=== PATIENT | male | born 1950 | race Caucasian/White ===

== ENCOUNTER → 2016-05-08 | Outpatient (CLI) | payer BC, OTHER ==
[~2016-05-08] VITALS: Ht 177.8 cm; Wt 79.8 kg
[~2016-05-08] MED LIST: ASPI1TAB PO; LIDOCAINE 2% INJ 100 MG/5 ML SDV (FOR ANES.) As Ordered ONE; NS 1,000 ML IV SCH; PROPOFOL 200 MG/20 ML VIAL As Ordered ONE; ZYRT10TA2 PO
--- NOTE | 2016-05-08 13:40 | ROOR ---
Patient Name: Ricky Beckman Procedure Date: 05/08/2016 1:15 PM Date of : 1950 Age: 66 Room: [facility] Gender: Male Note Status: Finalized Procedure: Colonoscopy to Cecum Indications: High risk colon cancer surveillance: Ulcerative proctitis Providers: Natalio Foreman MD Referring MD: Mike Borjas MD Requesting Provider: Medicines: Monitored Anesthesia Care Complications: No immediate complications. Procedure: Pre-Anesthesia Assessment: - The heart rate, respiratory rate, oxygen saturations, blood pressure, adequacy of pulmonary ventilation, and response to care were monitored throughout the procedure. The Colonoscope was introduced through the anus and advanced to the cecum, identified by appendiceal orifice and ileocecal valve. The colonoscopy was performed without difficulty. The patient tolerated the procedure well. The quality of the bowel preparation was excellent. Findings: The perianal and digital rectal examinations were normal. Non-bleeding internal hemorrhoids were found during retroflexion. The hemorrhoids were small and Grade I (internal hemorrhoids that do not prolapse). No other significant abnormalities were identified in a careful examination of the remainder of the colon. The exam was otherwise without abnormality on direct and retroflexion views. Impression: - Non-bleeding internal hemorrhoids. - The examination was otherwise normal on direct and retroflexion views. - No specimens collected. - The exam was otherwise normal to the cecum. Recommendation: - Patient has a contact number available for emergencies. The signs and symptoms of potential delayed complications were discussed with the patient. Return to normal activities tomorrow. Written discharge instructions were provided to the patient. - High fiber diet. - Discharge patient to home. - Continue present medications. - Repeat colonoscopy in 7 years for surveillance. - Return to referring physician. - The findings and recommendations were discussed with the patient's family. Natalio Foreman MD Natalio Foreman MD 05/08/2016 1:39:38 PM This report has been signed electronically. Number of Addenda: 0 Note Initiated On: 05/08/2016 1:15 PM Estimated Blood Loss: Estimated blood loss: none.
[2016-05-08 14:04] VITALS: BP 150/85
== END | disposition home or self-care (01) ==
LOC: M OPP 12:11
PROVIDERS: ATTEND Internal Medicine Gastroenterology
DX: K51.20 Ulcerative (chronic) proctitis without complications (principal); K64.0 First degree hemorrhoids; R06.83 Snoring; Z87.891 Personal history of nicotine dependence; Z79.82 Long term (current) use of aspirin; Z79.899 Other long term (current) drug therapy

== ENCOUNTER → 2016-07-27 | Outpatient (REF) | payer OTHER ==
[~2016-07-27] MED LIST changes: -LIDOCAINE 2% INJ 100 MG/5 ML SDV (FOR ANES.) As Ordered ONE; -NS 1,000 ML IV SCH; -PROPOFOL 200 MG/20 ML VIAL As Ordered ONE
[2016-07-27 10:27] LABS: MEAN CORPUSCULAR HEMOGLOBIN 30.9 pg (27.0-33.0); MEAN CORPUSCULAR VOLUME 90.7 fl (80.0-96.0); RED CELL DISTRIBUTION WIDTH 12.7 % (11.5-14.5); WHITE BLOOD COUNT 6.3 K/mm3 (4.0-10.0)
[2016-07-27 10:54] LABS: ALBUMIN 3.6 GM/DL (3.2-5.2); ALBUMIN/GLOBULIN RATIO 1.09 (1.00-1.93); BILIRUBIN,TOTAL 0.4 MG/DL (0.2-1.0); CALCIUM LEVEL 8.5 MG/DL (8.8-10.2); CREATININE FOR GFR 1.32 MG/DL (0.70-1.30); GLOMERULAR FILTRATION RATE 58.1 (>49); POTASSIUM SERUM 4.4 MEQ/L (3.5-5.1); TOTAL PROTEIN 6.9 GM/DL (6.4-8.2)
== END ==
LOC: M SFHCPLAZ 09:05
PROVIDERS: ATTEND Family Medicine
DX: K51.919 Ulcerative colitis, unspecified with unspecified complications (principal); E78.2 Mixed hyperlipidemia; Z12.5 Encounter for screening for malignant neoplasm of prostate

== ENCOUNTER → 2017-08-16 | Outpatient (REF) | payer MEDICARE, OTHER ==
[2017-08-16 13:40] LABS: HEMOGLOBIN 15.8 g/dl (13.5-17.5); MEAN CORPUSCULAR HEMOGLOBIN 30.4 pg (27.0-33.0); MEAN CORPUSCULAR HGB CONC 33.6 g/dl (32.0-36.5); MEAN CORPUSCULAR VOLUME 90.6 fl (80.0-96.0); PLATELET COUNT, AUTOMATED 259 10^3/uL (150-450); RED BLOOD COUNT 5.19 10^6/uL (4.30-6.10); RED CELL DISTRIBUTION WIDTH 12.7 % (11.5-14.5); WHITE BLOOD COUNT 6.3 10^3/uL (4.0-10.0)
[2017-08-16 13:53] LABS: ALBUMIN 3.6 GM/DL (3.2-5.2); ALBUMIN/GLOBULIN RATIO 1.06 (1.00-1.93); ALKALINE PHOSPHATASE 58 U/L (45-117); ALT/SGPT 31 U/L (12-78); ANION GAP 5 MEQ/L (8-16); AST/SGOT 25 U/L (7-37); BILIRUBIN,TOTAL 0.6 MG/DL (0.2-1.0); BLOOD UREA NITROGEN 25 MG/DL (7-18); CALCIUM LEVEL 8.9 MG/DL (8.8-10.2); CARBON DIOXIDE LEVEL 28 MEQ/L (21-32); CHLORIDE LEVEL 109 MEQ/L (98-107); CHOLESTEROL LEVEL 195 MG/DL (<200); CHOLESTEROL RISK RATIO 3.305 (<5); CREATININE FOR GFR 1.28 MG/DL (0.70-1.30); GLUCOSE, FASTING 88 MG/DL (70-100); HDL CHOLESTEROL 59 MG/DL (>40); LDL CHOLESTEROL 119.2 MG/DL (<100); NON-HDL-C 136 MG/DL; POTASSIUM SERUM 4.9 MEQ/L (3.5-5.1); PSA SCREENING 1.54 NG/ML (< 4.0); SODIUM LEVEL 142 MEQ/L (136-145); TRIGLYCERIDES LEVEL 84 MG/DL (<150)
== END ==
LOC: M SFHCADAM 09:00
DX: K51.919 Ulcerative colitis, unspecified with unspecified complications (principal); E78.2 Mixed hyperlipidemia; Z12.5 Encounter for screening for malignant neoplasm of prostate
CPT/HCPCS: 80053

== ENCOUNTER → 2018-08-19 | Outpatient (REF) | payer MEDICARE, OTHER ==
[~2018-08-19] MED LIST changes: -ASPI1TAB PO; +ASPI81TA26 PO; +ZYRT10CA5 PO; -ZYRT10TA2 PO
[2018-08-19 13:18] LABS: HEMATOCRIT 50.2 % (42.0-52.0); HEMOGLOBIN 16.5 g/dl (13.5-17.5); MEAN CORPUSCULAR HGB CONC 32.9 g/dl (32.0-36.5); MEAN CORPUSCULAR VOLUME 94.2 fl (80.0-96.0); PLATELET COUNT, AUTOMATED 251 10^3/uL (150-450); RED BLOOD COUNT 5.33 10^6/uL (4.30-6.10); WHITE BLOOD COUNT 6.7 10^3/uL (4.0-10.0)
[2018-08-19 13:21] LABS: ALBUMIN 3.4 GM/DL (3.2-5.2); ALT/SGPT 33 U/L (12-78); BILIRUBIN,TOTAL 0.4 MG/DL (0.2-1.0); BLOOD UREA NITROGEN 22 MG/DL (7-18); CALCIUM LEVEL 8.7 MG/DL (8.8-10.2); CARBON DIOXIDE LEVEL 29 MEQ/L (21-32); CHLORIDE LEVEL 108 MEQ/L (98-107); CHOLESTEROL LEVEL 196 MG/DL (<200); CHOLESTEROL RISK RATIO 3.438 (<5); GLOMERULAR FILTRATION RATE > 60.0 (>49); GLUCOSE, FASTING 102 MG/DL (70-100); HDL CHOLESTEROL 57 MG/DL (>40); LDL CHOLESTEROL 125 MG/DL (<100); NON-HDL-C 139 MG/DL; POTASSIUM SERUM 4.7 MEQ/L (3.5-5.1); SODIUM LEVEL 142 MEQ/L (136-145); TRIGLYCERIDES LEVEL 71 MG/DL (<150)
== END ==
LOC: M SFHCADAM 07:52
PROVIDERS: ATTEND Family Medicine
DX: K51.919 Ulcerative colitis, unspecified with unspecified complications (principal); E78.2 Mixed hyperlipidemia; Z12.5 Encounter for screening for malignant neoplasm of prostate
CPT/HCPCS: 80053; 80061; 85027; G0103

== ENCOUNTER → 2019-08-14 | Outpatient (REF) | payer MEDICARE, OTHER ==
[2019-08-14 14:39] LABS: HEMATOCRIT 46.5 % (42.0-52.0); MEAN CORPUSCULAR HEMOGLOBIN 29.5 pg (27.0-33.0); MEAN CORPUSCULAR HGB CONC 32.3 g/dl (32.0-36.5); MEAN CORPUSCULAR VOLUME 91.4 fl (80.0-96.0); PLATELET COUNT, AUTOMATED 241 10^3/uL (150-450); RED BLOOD COUNT 5.09 10^6/uL (4.30-6.10); WHITE BLOOD COUNT 5.7 10^3/uL (4.0-10.0)
[2019-08-14 15:20] LABS: ALBUMIN 3.4 GM/DL (3.2-5.2); ALT/SGPT 36 U/L (12-78); BILIRUBIN,TOTAL 0.6 MG/DL (0.2-1.0); BLOOD UREA NITROGEN 18 MG/DL (7-18); CALCIUM LEVEL 8.7 MG/DL (8.8-10.2); CARBON DIOXIDE LEVEL 26 MEQ/L (21-32); CHLORIDE LEVEL 108 MEQ/L (98-107); CHOLESTEROL LEVEL 148 MG/DL (<200); CHOLESTEROL RISK RATIO 2.508 (<5); GLOMERULAR FILTRATION RATE > 60.0 (>49); GLUCOSE, FASTING 93 MG/DL (70-100); HDL CHOLESTEROL 59 MG/DL (>40); LDL CHOLESTEROL 78 MG/DL (<100); NON-HDL-C 89 MG/DL; POTASSIUM SERUM 4.8 MEQ/L (3.5-5.1); SODIUM LEVEL 140 MEQ/L (136-145); TOTAL PROTEIN 6.8 GM/DL (6.4-8.2); TRIGLYCERIDES LEVEL 55 MG/DL (<150)
== END ==
LOC: M SFHCADAM 08:38
PROVIDERS: ATTEND Family Medicine
DX: K51.919 Ulcerative colitis, unspecified with unspecified complications (principal); E78.2 Mixed hyperlipidemia; Z12.5 Encounter for screening for malignant neoplasm of prostate
CPT/HCPCS: 80053; 80061; 85027; G0103

== ENCOUNTER → 2019-09-11 | Outpatient (CLI) | payer MEDICARE, BC, OTHER ==
[~2019-09-11] MED LIST changes: +ATOR1TAB21 PO; +CALCCAP4 PO; +CETI10CH PO; +MULT-90 PO; +OYST1TAB PO; +VITA1CAP25 PO
--- NOTE | 2019-09-12 17:12 | ECGEPIP ---
[facility] Test Date: 2019-09-11 Pat Name: GISSELL POWELL Department: Room: - Gender: Male Trauma Program Manager: CANELO : 1950 Requested By: ALEJA GAXIOLA Order Number: [id number] Reading MD: Home Richardson Measurements Intervals [place] Rate: 62 P: 71 AR: 192 QRS: 65 QRSD: 97 T: 47 QT: 398 QTc: 405 Interpretive Statements SINUS RHYTHM No prior tracing in the system Electronically Signed on 09-12-2019 17:11:53 EDT by Home Richardson
== END ==
LOC: M LAB 10:21 → M EKG 10:21
PROVIDERS: ATTEND Anesthesiology
DX: Z01.818 Encounter for other preprocedural examination (principal); E78.00 Pure hypercholesterolemia, unspecified; K52.9 Noninfective gastroenteritis and colitis, unspecified

== ENCOUNTER → 2019-09-18 | Outpatient (CLI) | payer MEDICARE, OTHER | LOC: M LABSMTC 10:52 | PROVIDERS: ATTEND Anesthesiology | DX: Z03.89 Encounter for observation for other suspected diseases and conditions ruled out (principal); Z11.59 Encounter for screening for other viral diseases | CPT/HCPCS: C9803; U0003 ==

== ENCOUNTER 2019-09-23 12:15 | Day surgery (SDC) | payer MEDICARE, BC, OTHER ==
[~2019-09-23] VITALS: Ht 175.3 cm; Wt 73.0 kg
[~2019-09-23 12:15] MED LIST changes: +LR 1,000 ML IV ONE
[2019-09-23] MEDS ORDERED: LIDOCAINE 2% 100MG/5ML SDV (FOR ANES.) As Ordered ONE (12:58)
[2019-09-23] MEDS ORDERED: MIDAZOLAM INJ 2MG/2ML VIAL (J2250 PER 1MG) As Ordered ONE (12:58)
[2019-09-23] MEDS ORDERED: ONDANSETRON 4MG/2ML VIAL As Ordered ONE (12:58)
[2019-09-23] MEDS ORDERED: fentaNYL 250 MCG/5 ML INJECTION (J3010) As Ordered ONE (12:58)
[2019-09-23] MEDS ORDERED: dexameTHASONE 4 MG/ML 1ML VIAL (J1100 PER 1MG) As Ordered ONE (12:58)
[2019-09-23] MEDS ORDERED: ROCURONIUM BROMIDE 50 MG/5 ML VIAL As Ordered ONE (12:59)
[2019-09-23] MEDS ORDERED: SUGAMMADEX SODIUM 500 MG/5 ML VIAL (BRIDION) As Ordered ONE (12:59)
[2019-09-23] MEDS ORDERED: propofoL 200 MG/20 ML VIAL As Ordered ONE (12:59)
[2019-09-23] MEDS ORDERED: BUPIVACAINE HCL 0.25% 30ML VIAL As Ordered ONE (16:33)
[2019-09-23] MEDS ORDERED: ACETAMINOPHEN 1000MG 100ML IV BTL (OFIRMEV) (J0131 PER 10MG) As Ordered ONE (17:05)
[2019-09-23] MEDS ORDERED: PERCOCET 5MG/325MG TAB PO PRN (19:00)
[2019-09-23] MEDS ORDERED: LR 1,000 ML IV SCH (19:00)
[2019-09-23] MEDS ORDERED: ACETAMINOPHEN TAB 650MG DOSE (2X325MG) PO PRN (19:00)
[2019-09-23] MEDS ORDERED: ONDANSETRON 4MG/2ML VIAL IV PRN (19:00)
[2019-09-23] MEDS ORDERED: fentaNYL 100 MCG/2 ML INJECTION (J3010) IV PRN (19:00)
[2019-09-23] MEDS ORDERED: METOCLOPRAMIDE INJ 10MG/2ML VIAL (J2765 PER 1) IV PRN (19:00)
[2019-09-23] MEDS ORDERED: IBUPROFEN 600MG TAB PO PRN (19:00)
[2019-09-23] MEDS ORDERED: MEPERIDINE INJ 25 MG/ML VIAL (J2175) IV PRN (19:00)
[2019-09-23 19:36] VITALS: BP 149/70
--- NOTE | 2019-10-01 13:19 | RO ---
DATE OF PROCEDURE: 09/23/2019 PREOPERATIVE DIAGNOSIS: Right inguinal adenopathy. POSTOPERATIVE DIAGNOSIS: Right inguinal adenopathy. PROCEDURE PERFORMED: Excisional biopsy of enlarged right inguinal lymph node 3 cm in maximal diameter. SURGEON: Rafat Collazo MD FISH DRIER: ANESTHESIA: General. INDICATIONS FOR THE PROCEDURE: The patient is a 69-year-old man who noted the development of an enlarged node in the right inguinal area over the last couple months. This has been nontender. There are no suspicious skin lesions or areas of distal infection identified. He is now for an excisional biopsy of this enlarged node. OPERATIVE PROCEDURE: The patient was brought to the operating room and placed on the operating table in the supine position. He was placed under general endotracheal anesthesia. The patient's right inguinal area was prepped and draped in a sterile fashion. Examination revealed a very prominent node just above the inguinal crease at about at the midpoint of the inguinal fold. There was a second smaller and slightly more subtle node medially. The node selected for biopsy was approximately 3 cm in maximal dimension. An oblique transverse skin incision was made directly over the node. This was approximately 3.5 cm in length. The incision was deepened through the subcutaneous tissues using the cautery. The fascia was opened. Dissection was then carried down around the node circumferentially. Areolar tissue was cauterized to divide it. Small vascular structures were clipped with hemoclips before dividing them either with scissors or cautery. In this manner, the node was completely freed circumferentially. This measured 3.0 x 2.0 x 2.0 cm. This was sent fresh to the pathology department for evaluation for malignancy, including lymphoma. The wound was inspected, and there was no evidence of bleeding or significant lymphatic fluid leak. The fascia and subcutaneous tissues were closed with a running suture of 3-0 chromic. The skin edges were approximated with some buried chromic sutures, and then the skin edges were approximated with a running subcuticular 4-0 Vicryl and Steri-Strips. A light dressing was applied. The patient tolerated the procedure well. I would note that approximately 10 mL of 0.25% Marcaine were infiltrated about the incision prior to completion of the closure. He was awakened in the operating room, extubated, and moved to the recovery room in stable condition.
== END 2019-09-23 19:45 | disposition home or self-care (01) ==
LOC: M SDC 12:15
PROVIDERS: ATTEND Surgery
DX: C7A.8 Other malignant neuroendocrine tumors (principal); E78.5 Hyperlipidemia, unspecified; Z79.82 Long term (current) use of aspirin; Z79.899 Other long term (current) drug therapy
CPT/HCPCS: 38531; 88305; J0131; J1100; J2250; J2405; J3010

== ENCOUNTER → 2019-11-26 | Outpatient (CLI) | payer MEDICARE, BC, OTHER ==
[~2019-11-26] MED LIST changes: -LR 1,000 ML IV ONE
[2019-11-26 09:22] LABS: BASO % 0.5 % (0.0-1.0); EOS # 0.5 10^3/uL (0.0-0.5); EOS % 7.2 % (0.0-3.0); HEMATOCRIT 49.6 % (42.0-52.0); HEMOGLOBIN 16.4 g/dl (13.5-17.5); LYMPH # 1.3 10^3/uL (1.5-5.0); LYMPH % 19.2 % (24.0-44.0); MEAN CORPUSCULAR HEMOGLOBIN 30.7 pg (27.0-33.0); MEAN CORPUSCULAR HGB CONC 33.1 g/dl (32.0-36.5); MEAN CORPUSCULAR VOLUME 92.7 fl (80.0-96.0); MONO # 0.5 10^3/uL (0.0-0.8); MONO % 7.4 % (0.0-5.0); NEUTROPHILS # 4.2 10^3/uL (1.5-8.5); NEUTROPHILS % 65.2 % (36.0-66.0); PLATELET COUNT, AUTOMATED 332 10^3/uL (150-450); RED BLOOD COUNT 5.35 10^6/uL (4.30-6.10); WHITE BLOOD COUNT 6.5 10^3/uL (4.0-10.0)
[2019-11-26 09:45] LABS: ALBUMIN 3.1 GM/DL (3.2-5.2); BILIRUBIN,TOTAL 0.6 MG/DL (0.2-1.0); CALCIUM LEVEL 9.3 MG/DL (8.8-10.2); CREATININE FOR GFR 1.59 MG/DL (0.70-1.30); GLOMERULAR FILTRATION RATE 46.5 (>49); POTASSIUM SERUM 4.5 MEQ/L (3.5-5.1); TOTAL PROTEIN 6.7 GM/DL (6.4-8.2)
== END ==
LOC: M LAB 08:21
PROVIDERS: ATTEND Internal Medicine Hematology
DX: C4A.9 Merkel cell carcinoma, unspecified (principal)

== ENCOUNTER → 2020-03-09 | Outpatient (CLI) | payer MEDICARE, BC, OTHER | LOC: M LAB 08:52 | PROVIDERS: ATTEND Internal Medicine Hematology | DX: C4A.9 Merkel cell carcinoma, unspecified (principal); Z53.8 Procedure and treatment not carried out for other reasons ==

== ENCOUNTER → 2020-08-30 | Outpatient (REF) | payer MEDICARE, OTHER ==
[2020-08-30 13:35] LABS: HEMATOCRIT 44.5 % (42.0-52.0); HEMOGLOBIN 14.3 g/dl (13.5-17.5); MEAN CORPUSCULAR HEMOGLOBIN 29.8 pg (27.0-33.0); MEAN CORPUSCULAR HGB CONC 32.1 g/dl (32.0-36.5); MEAN CORPUSCULAR VOLUME 92.7 fl (80.0-96.0); PLATELET COUNT, AUTOMATED 117 10^3/uL (150-450); WHITE BLOOD COUNT 4.1 10^3/uL (4.0-10.0)
[2020-08-30 14:11] LABS: HEMOGLOBIN A1c 5.7 %
[2020-08-30 14:25] LABS: ALT/SGPT 25 U/L (12-78); BLOOD UREA NITROGEN 19 MG/DL (7-18); CALCIUM LEVEL 8.5 MG/DL (8.8-10.2); CARBON DIOXIDE LEVEL 28 MEQ/L (21-32); CHLORIDE LEVEL 106 MEQ/L (98-107); CREATININE FOR GFR 1.05 MG/DL (0.70-1.30); GLOMERULAR FILTRATION RATE > 60.0 (>49); GLUCOSE, FASTING 86 MG/DL (70-100); POTASSIUM SERUM 4.9 MEQ/L (3.5-5.1); SODIUM LEVEL 140 MEQ/L (136-145)
[2020-08-30 14:26] LABS: ALBUMIN 3.1 GM/DL (3.2-5.2); BILIRUBIN,TOTAL 0.3 MG/DL (0.2-1.0); CHOLESTEROL LEVEL 155 MG/DL (<200); CHOLESTEROL RISK RATIO 3.039 (<5); HDL CHOLESTEROL 51 MG/DL (>40); LDL CHOLESTEROL 90 MG/DL (<100); NON-HDL-C 104 MG/DL; TOTAL PROTEIN 6.9 GM/DL (6.4-8.2); TRIGLYCERIDES LEVEL 68 MG/DL (<150)
== END ==
LOC: M SFHCADAM 09:05
PROVIDERS: ATTEND Family Medicine
DX: C4A.71 Merkel cell carcinoma of right lower limb, including hip (principal); E78.2 Mixed hyperlipidemia; R73.03 Prediabetes; Z12.5 Encounter for screening for malignant neoplasm of prostate
CPT/HCPCS: 80053; 80061; 83036; 85027; G0103

== ENCOUNTER 2021-01-27 16:56 | Observation (INO) | payer MEDICARE, OTHER, BC ==
[~2021-01-27] VITALS: Ht 172.7 cm; Wt 70.0 kg
--- OUTSIDE RECORDS SUMMARY | 2021-01-27 17:04 | CCD | Continuity of Care Document ---
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 AUTM [phone] Problems Active Problems Provider Date Ulcerative colitis Natalio Foreman M.D. Onset: 04/13/19 17 Social History Type Date Description Comments Sex Unknown ETOH Use Denies alcohol use Tobacco Use Start: Unknown End: Unknown Patient is a former smoker QUIT 1975 Allergies and adverse reactions Active Allergies Criticality Reaction | Severity Comments Date NKDA Unable to assess criticality 04/13/2016 Hayfever Unable to assess criticality 04/13/2016 Medications Active Medications SIG Qnty Indications Ordering Provide r Date Suprep Bowel Prep Kit 17.5-3.13-1.6GM/177ML Solution use as directed 354ml Natalio Foreman M.D. 01/04/2021 Ciclopirox 1% Shampoo Unknown Ketoconazole 2% Cream Unknown Ondansetron 4mg Tablets Dispers Unknown Pantoprazole Sodium 40mg Tablets DR Unknown Prednisone 10mg Tablets Unknown Prochlorperazine Maleate 10mg Tablets Unknown Sulfamethoxazole/Trimethoprim DS 800-160mg Tablets Unknown Vitamin D (Cholecalciferol) 50mcg (1999 Ut) Capsules Unknown Calcium Carbonate 500mg Chewtabs Unknown Diprolene AF 0.05% Cream Unknown Acetaminophen 500mg Tablets Unknown Cetirizine HCL 10mg Tablets Unknown Immunizations Description No Information Available Vital Signs Date Vital Result Comment 01/04/2021 11:20am Height 70 inches 5'10" Weight 160.00 lb BP Systolic 130 mmHg BP Diastolic 89 mmHg Heart Rate 73 /min BMI (Body Mass Index) 23.0 kg/m2 Weight 72.576 kg Body Temperature 97.2 F 04/13/2016 10:18am Height 70 inches 5'10" Weight 176.00 lb BP Systolic 148 mmHg BP Diastolic 87 mmHg Heart Rate 71 /min BMI (Body Mass Index) 25.3 kg/m2 Weight 79.834 kg Results Description No Information Available Procedures Date Code Description Status 01/04/2021 47486 Office/Outpatient New Low MDM 30 -44 Minutes Completed Medical Devices Description No Information Available Encounters Type Date Location Provider Dx Diagnosis Office Visit 01/04/2021 11:00a Main Office Natalio Foreman M.D. K 51.20 Ulcerative (chronic) proctitis without complications Assessments Date Code Description Provider 01/04/2021 K51.20 Ulcerative (chronic) proctitis w ithout complications Natalio Foerman M.D. Plan of Treatment Future Appointment(s):* 02/15/2021 3:45 pm - Natalio Foreman M.D. at Main Office 01/04/2021 - Natalio Foreman M.D.* K51.20 Ulcerative (chronic) proctitis without complications* Comments:* 70 yo wm who presents due to a h/o rectal bleeding/urgency/s/p pancreatitis on a hunting trip. He has a new diagnosis of [place] Cell cancer- on chemo/had suegery. Last scope was in 2017. No c/o abdominal pain, weight loss, change in bowel habits, mild rectal bleeding. No family h/o colon cancer. No h/o chest pain, or sob.Plan:1. High fiber diet.2. He doesn't drink alcohol.3. Tapering off prednisone 40 mgs by 10 mgs per week.4. Will have an abdominal ct + Pet scan 5. Office in 1 month. Functional Status Description No Information Available Mental Status Description No Information Available Referrals Description No Information Available
--- OUTSIDE RECORDS SUMMARY | 2021-01-27 17:04 | CCD | Continuity of Care Document ---
Author Author Ricky FOREMAN Organization Unknown Address [address] [place] [address] Phone [phone] Care Team Providers Care Glazier Helper Name Role Phone Mike Borjas M.D. AUTM [phone] Problems Active Problems Provider Date Ulcerative colitis [...] kg Results Description No Information Available Procedures Description No Information Available Medical Devices Description No Information Available Encounters Description No Information Available Assessments Date Code Description Provider 01/04/2021 K51.20 Ulcerative (chronic) proctitis w ithout complications Natalio Foreman M.D. Plan of Treatment Future Appointment(s):* 02/15/2021 3:45 pm - Natalio Foreman M.D. at Main Office 01/04/2021 - Natalio Foreman M.D.* K51.20 Ulcerative (chronic) proctitis without complications* Comments:* 70 yo wm who presents due to a h/o rectal bleeding/urgency/s/p pancreatitis on a hunting trip. He has a new diagnosis of [place] Cell cancer- on chemo/had suegery. Last scope [...]
--- OUTSIDE RECORDS SUMMARY | 2021-01-27 17:04 | CCD ---
Author Author [facility] Organization 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 confi rmed 97575038 Problem Ulcerative colitis, unspecified with unspecified complications K51.919 Active confirmed 41727750 Problem Taisha cell carcinoma, unspecified C4A.9 Activ e confirmed 687198550 Problem Male erectile dysfunction, unspecified N52.9 A ctive confirmed 773315409 Problem Chronic sinusitis, unspecified J32.9 Active confir med 65581283 Problem Encounter for screening for malignant neoplasm of prostate Z12.5 Active confirmed 017073676 Problem Prediabetes R73.03 Active confirmed 13940364 2 Problem Medicare annual wellness visit, subsequent Z00.00 Active confirmed 617917880 ALLERGIES Allergen (clinical drug ingredient) Drug/Non Drug Allergy do cumented on EMR Reaction Allergy Type Onset Date Status Pollen Pollen Unknown Drug Allergy Active cefuroxime Cefuroxime Axetil([facility] Code:[address]-95) Diarrhea Drug Allergy Active ENCOUNTERS from 1950 to 2021-01-18 Encounter Location Date Provider Diagnosis [address] [place] [address] Jan, Mike Indio IMMUNIZATIONS Vaccine Route Administration Date Status TDAP 0.5mL (Boostrix) IM Intramuscular Apr 10, 2012 Administe red Zoster 50mcg/0.5mL Shingrix Unknown Apr 01, 2018 Admi nistered Zoster 50mcg/0.5mL Shingrix Unknown Jan 30, 2018 Admi nistered Influenza 6mo & up Fluzone IM Intramuscular Mar 01, 2016 Admi nistered Influenza 6mo & up Fluzone IM Intramuscular Jan 21, 2015 Admi nistered Influenza 6mo & up Fluzone Unknown Jan 23, 2014 Admin istered Influenza 6mo & up Fluzone IM Intramuscular Feb 15, 2017 Admi nistered Influenza 6mo & up Fluzone IM Intramuscular Jan 01, 2013 Admi nistered Pneumococcal 0.5mL Prevnar 13 IM Intramuscular August 21, 2017 A dministered Influenza 6mo & up Fluzone IM Intramuscular Jan 10, 2012 Admi nistered Pneumococcal Adult 0.5mL Pneumovax 23 IM Intramuscular August 29, 2018 Administered Influenza 6mo & up Fluzone IM Intramuscular Jan 18, 2011 Admi nistered SOCIAL HISTORY Sex Assigned At : Social History Observation Description Sex Assigned At Unknown Education: Question Answer Notes Level of Education: High School Audit Question Answer Notes Total Score: 0 Interpretation: Alcohol Education Drug and Alcohol Question Answer Notes Total Score: 0 Interpretation: No problems reported REASON FOR REFERRAL No Information VITAL SIGNS No information MEDICATIONS Medication SIG (Take, Route, Frequency, Duration) Notes Start Da te End Date Status Vitamin D 1000mg 1 tablet Orally daily Active ZyrTEC 10 MG 1 tablet as needed Orally Once a day Active Fluticasone Propionate 50 MCG/ACT 1 spray in each nostril Nasall y Once a day Active Atorvastatin Calcium 20 MG 1 tablet Orally Once a day for 90 Active Calcium 600 + D 600-400 MG-UNIT 1 tablet Orally daily Active Pembrolizumab 50 MG as directed Intravenous Aug, Active Multivitamins 1 1 tab(s) Orally daily Active Aspirin 81 MG 1 tablet Orally Once a day Active PROCEDURES No Information RESULTS No Results REASON FOR VISIT needs oncologust referral MEDICAL (GENERAL) HISTORY Type Description Date Medical History allergies Medical History erectile dysfunction Medical History ulcerative colitis--now in r emission-- regular colonoscopies with Dr. Foreman, (last 05/05 nl--repeat in 7 yrs) Medical History dysplastic nevi--sees derm in [place] 6 mo Medical History Lyme vaccination 1999 Medical History ? 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/05; tx with nivolumab x 2 then radiation tx x 25 sessions; followed by [facility];neg PET 05/09; infected UR for rt thigh abscess at biopsy site (80 ml pus was drained); started pembrolizumab 07/07 Surgical History cholecystectomy 1999 Surgical History colonoscopies 1999, 2008, 04/2016 Hospitalization History Ulcerative colitis Hospitalization History Kidney stone 1990 Goals Section No Information Health Concerns No Information MEDICAL EQUIPMENT No Information MENTAL STATUS No Information FUNCTIONAL STATUS No Information ASSESSMENTS No Information PLAN OF TREATMENT Next Appt Details Provider Name:Mike Borjas, 2021-02 09:30:00 AM, [id number] [facility] [place], [address], Insurance Providers Payer Name Payer Address Payer Phone Insured Name Patient Relati onship to Insured Coverage Start Date Coverage End Date [facility] [address] [facility] [id number] GISSELL BECKMAN MEDICARE Part A and B [address] [facility] [phone] GISSELL BECKMAN self
[2021-01-27] MEDS ORDERED: OXYC-517 (17:36)
[2021-01-27] MEDS ORDERED: PRED10TA2 PO (17:36)
[2021-01-27] MEDS ORDERED: ONDA4TAB6 (17:36)
[2021-01-27] MEDS ORDERED: ATIV1TAB10 (17:36)
[2021-01-27] MEDS ORDERED: ONDANSETRON 4MG/2ML VIAL IV ONE (18:10)
[2021-01-27] MEDS ORDERED: NS 1,000 ML IV ONE (18:10)
--- OUTSIDE RECORDS SUMMARY | 2021-01-27 18:24 | CCD ---
Author Author [facility] Organization [facility] Address Unknown Phone Unavailable Care Team Providers Care General Neurologist Name Role Phone Halley Foreman MD Unavailable Unavailable Halley Foreman MD Unavailable Unavailable Halley Foreman MD Unavailable Unavailable Halley Foreman MD Unavailable Unavailable Halley Foreman MD Unavailable Unavailable Halley Foreman MD Unavailable Unavailable Halley Foreman MD Unavailable Unavailable Halley Foreman MD Unavailable Unavailable Halley Foreman MD Unavailable Unavailable Halley Foreman MD Unavailable Unavailable Halley Foreman MD Unavailable Unavailable Halley Foreman MD Unavailable Unavailable Halley Foreman MD Unavailable Unavailable Halley Foreman MD Unavailable Unavailable Halley Foreman MD Unavailable Unavailable Halley Foreman MD Unavailable Unavailable Halley Foreman MD Unavailable Unavailable Halley Foreman MD Unavailable Unavailable Halley Foreman MD Unavailable Unavailable Halley Foreman MD Unavailable Unavailable Halley Foreman MD Unavailable Unavailable Halley Foreman MD Unavailable Unavailable Halley Foreman MD Unavailable Unavailable Halley Foreman MD Unavailable Unavailable Halley Foreman MD Unavailable Unavailable Kellen, S Natalio MD Unavailable Unavailable Kellen, S Natalio MD Unavailable Unavailable Kellen, S Natalio MD Unavailable Unavailable Kellen, S Natalio MD Unavailable Unavailable Kellen, S Natalio MD Unavailable Unavailable Kellen, S Natalio MD Unavailable Unavailable Kellen, S Natalio MD Unavailable Unavailable Kellen, S Natalio MD Unavailable Unavailable Kellen, S Natalio MD Unavailable Unavailable Kellen, S Natalio MD Unavailable Unavailable Kellen, S Natalio MD Unavailable Unavailable Kellen, S Natalio MD Unavailable Unavailable Kellen, S Natalio MD Unavailable Unavailable Kellen, S Natalio MD Unavailable Unavailable Kellen, S Natalio MD Unavailable Unavailable Kellen, S Natalio MD Unavailable Unavailable Kellen, S Natalio MD Unavailable Unavailable Kellen, S Natalio MD Unavailable Unavailable Kellen, S Natalio MD Unavailable Unavailable Kellen, S Natalio MD Unavailable Unavailable Kellen, S Natalio MD Unavailable Unavailable Kellen, S Natalio MD Unavailable Unavailable Kellen, S Natalio MD Unavailable Unavailable Kellen, S Natalio MD Unavailable Unavailable Kellen, S Natalio MD Unavailable Unavailable KELLEN, A CORDELL DO Unavailable Unavailable KELLEN, A CORDELL DO Unavailable Unavailable KELLEN, A CORDELL DO Unavailable Unavailable KELLEN, A CORDELL DO Unavailable Unavailable KELLEN, A CORDELL DO Unavailable Unavailable KELLEN, A CORDELL DO Unavailable Unavailable KELLEN, A CORDELL DO Unavailable Unavailable KELLEN, A CORDELL DO Unavailable Unavailable KELLEN, A CORDELL DO Unavailable Unavailable KELLEN, A CORDELL DO Unavailable Unavailable KELLEN, A CORDELL DO Unavailable Unavailable KELLEN, A CORDELL DO Unavailable Unavailable KELLEN, A CORDELL DO Unavailable Unavailable KELLEN, A CORDELL DO Unavailable Unavailable KELLEN, A CORDELL DO Unavailable Unavailable KELLEN, A CORDELL DO Unavailable Unavailable KELLEN, A CORDELL DO Unavailable Unavailable KELLEN, A CORDELL DO Unavailable Unavailable KELLEN, A CORDELL DO Unavailable Unavailable KELLEN, A CORDELL DO Unavailable Unavailable KELLEN, A CORDELL DO Unavailable Unavailable KELLEN, A CORDELL DO Unavailable Unavailable Re-disclosure Warning The records that you are about to access may contain information from federally-assisted alcohol or drug abuse programs. If such information is present, then the following federally mandated warning applies: This information has been disclosed to you from records protected by federal confidentiality rules (42 CFR part 2). The federal rules prohibit you from making any further disclosure of this information unless further disclosure is expressly permitted by the written consent of the person to whom it pertains or as otherwise permitted by 42 CFR part 2. A general authorization for the release of medical or other information is NOT sufficient for this purpose. The Federal rules restrict any use of the information to criminally investigate or prosecute any alcohol or drug abuse patient.The records that you are about to access may contain highly sensitive health information, the redisclosure of which is protected by Article 27-F of the [facility] Public Health law. If you continue you may have access to information: Regarding HIV / AIDS; Provided by facilities licensed or operated by the [facility] Office of Mental Health; or Provided by the [facility] Office for People With Developmental Disabilities. If such information is present, then the following [facility] mandated warning applies: This information has been disclosed to you from confidential records which are protected by state law. State law prohibits you from making any further disclosure of this information without the specific written consent of the person to whom it pertains, or as otherwise permitted by law. Any unauthorized further disclosure in violation of state law may result in a fine or retirement sentence or both. A general authorization for the release of medical or other information is NOT sufficient authorization for further disc losure. Allergies and Adverse Reactions Type Description Substance Reaction Status Data Source(s ) Allergy to substance No Known Allergies No known allergies (situation ) [place] (Maddie Dueñas MD [facility]) Family History Family Member Name Family Member Gender Family Member Status Date o f Status Description Data Source(s) Unknown Female Problem [facility] ([facility]) Unknown Female Problem [facility] Unknown Female Problem [facility] ([facility]) Encounters Encounter Providers Location Date Indications Data Source(s ) [place] [address] [facility] [address] 01/18/2021 12:00:00 AM EDT eCW1 ([facility]) Outpatient Attender: Natalio Foreman MD Main Office 01/04/2021 11:00:00 AM EDT MED[facility] ([facility]) Outpatient [address] [facility] [address] 09/15/2020 12:00:00 AM EDT eCW1 ([facility]) Office Visit, Est Pt., Level 2 FC [address] [place] [address] 06/25/2020 12:00:00 AM EDT eCW1 ([facility]) [place] [address] [facility] [address] 06/16/2020 12:00:00 AM EDT eCW1 ([facility]) [place] [address] [facility] [address] 02/25/2020 12:00:00 AM EST eCW1 ([facility]) Outpatient<td ID="encounterTypeDescripti onID0">1 Year Follow-Up</td><td>Cordell Foreman DO</td><td>Maddie Gamboa MD [facility]</td><td>02/20/2020</td><td>7:18AM</td><td>8:22AM</td><td><content ID="encounterDiagnosisID0-0">Corneal Scar</content>, <content ID="encounterDiagnosisID0-1">Dry Eye Syndrome Both Eyes</content>, <content ID="encounterDiagnosisID0-2">Macular Puckering Left Eye</content>, <content ID="encounterDiagnosisID0-3">Vitreous Disorders Degeneration</content>, <content ID="encounterDiagnosisID0-4">Pseudophakia</content>, <content ID="encounterDiagnosisID0-5">Cataract Senile Nuclear</content></td> Attender: CORDELL Ivy MD [facility] 02/20/2020 07:18:00 AM EST - 02/20/2020 08:22:00 AM EST Cataract Senile NuclearPseudophakiaVitre ous Disorders DegenerationMacular Puckering Left EyeDry Eye Syndrome Both EyesCorneal Scar [place] (Maddie Dueñas MD [facility]) Cataract Senile Nuclear Pseudophakia Vitreous Disorders Degeneration Macular Puckering Left Eye Dry Eye Syndrome Both Eyes Corneal Scar Unknown [address] [facility] [address] 12/09/2019 12:00:00 AM EDT eCW1 ([facility]) Immunizations Vaccine Date Status Description Data Source(s) COVID-19 VACCINE Moderna 06/18/2020 12:00:00 AM EDT completed [facility] Vaccine Series Complete: NOThis Data was Submitted to [facility] [employer]. COVID-19 VACCINE Moderna 05/14/2020 12:00:00 AM EST completed [facility] Vaccine Series Complete: YESThis Data wa s Submitted to [facility] [employer]. Medications Medication Brand Name Start Date Product Form Dose Route Admi nistrative Instructions Pharmacy Instructions Status Indications Reaction Description Data Source(s) Suprep Bowel Prep Kit Suprep Bowel Prep Kit 01/04/2021 12:00:00 AM EDT active MEDENT ([facility]) Pembrolizumab 50 MG UNK 09/15/2020 12:00:00 AM EDT active Pembrolizumab 50 MG eCW1 ([facility]) Pembrolizumab 50 MG UNK 09/15/2020 12:00:00 AM EDT active Pembrolizumab 50 MG eCW1 ([facility]) Cetirizine 10 mg Oral Tablet Cetirizine 10 mg Oral Tablet 12:00:00 AM EST 1 active Cetirizine GRE[place]W AY (Maddie Dueñas MD [facility]) 4 ML nivolumab 10 MG/ML Injection Nivolumab 40 MG/4ML Intravenous Solution Nivolumab 40 MG/4ML Intravenous Solution 02/20/2020 12:00:00 AM EST active 4 ML nivolumab 10 MG/ML Injectio n [facility] (Maddie Dueñas MD [facility]) Betamethasone 0.5 MG/ML Topical Cream Be tamethasone Dipropionate 0.05% External Cream Betamethasone Dipropionate 0.05% External Cream 2019 12:00:00 AM EST active betamethasone 0.5 MG/ML Topical Cream [place] (Maddie Dueñas MD [facility]) Ketoconazole 20 MG/ML Topical Cream Ketoconazole 2% Ex ternal Cream Ketoconazole 2% External Cream 02/20/2020 12:00:00 AM EST active ketoconazole 20 MG/ML Topical Cream [facility]Y (Maddie Dueñas MD [facility]) Daily Multivitamin Oral Capsule Daily Multivitamin Oral Caps ule 02/20/2020 12:00:00 AM EST 1 active Daily Mu ltivitamin STACEY (Maddie Dueñas MD [facility]) ciclopirox 10 MG/ML Medicated Shampoo Ciclopirox 1% Ex ternal Shampoo Ciclopirox 1% External Shampoo 02/20/2020 12:00:00 AM EST active ciclopirox 10 MG/ML Medicated Shampoo [facility] (Maddie Dueñas MD [facility]) Cholecalciferol 2000 UNT Oral Capsule Ch olecalciferol 50 MCG (1999) Oral Capsule Cholecalciferol 50 MCG (1999) Oral Capsule 02/20/20 12:00:00 AM EST active cholecalciferol 0 .05 MG Oral Capsule [facility] (Maddie Dueñas MD [facility]) Insurance Providers Payer name Policy type / Coverage type Policy ID Covered constitution party ID Covered constitution party's relationship to salazar Policy Salazar Plan Information BCBS EMPIRE RONALD DIV [id number] SP [id number] [facility] [id number] SP [id number] MEDICARE A [id number] Self [id number] EMPIRE PLAN [facility] U [id number] Self [id number] [facility] U [id number] Self [id number] Medicare Part B [facility] Other 0 [id number] Self 0 BCBS EMPIRE RONALD DIV BCBS EMPIRE [place]ON[place] DIV [id number] SP [id number] ANSI-Medicare Part B [id number] ANSI-Commercial [id number] ANSI-Commercial [id number] ANSI-Medicare Part B [id number] ANSI-Medicare Part B [id number] ANSI-Commercial [id number] MEDICARE [id number] SP [id number] A BCBS EMPIRE BC [id number] S [id number] EMPIRE ([facility]) O [id number] S [id number] [facility] [id number] S [id number] [facility] Health Maintenance Organization (HMO) [id number] Self [employer] Maintenance Organization (HMO) [id number] Self MEDICARE [id number] SP [id number] [employer] [id number] SP [id number] BCBS EMPIRE [place] DIV [id number] SP [id number] [employer] [id number] SP [id number] [facility] Other 0 [id number] Self 0 Problems, Conditions, and Diagnoses Code Display Name Description Problem Type Effective Dates Data Source(s) 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, unspecified Proble m 06/25/2020 12:00:00 AM EDT eCW1 ([facility]) 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/2020 12:00:00 AM EDT eCW1 ([facility]) 366.16 Cataract Senile Nuclear Cataract Senile Nuclear Proble m 02/20/2020 12:00:00 AM EST [place] (Maddie Dueñas MD [facility]) V43.1 Pseudophakia Pseudophakia Problem 02/20/2020 12:00:00 A M EST [facility] (Mdadie Dueñas MD [facility]) Surgeries/Procedures Procedure Description Date Indications Data Source(s) OFFICE OUTPATIENT NEW 30 MINUTES 01/04/2021 12:00:00 A M EDT [facility] ([facility]) Surgical / procedural history Gall Blad viet removal 1999, Biopsy of groin 10/24/2019, 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 Foreman 08/28/2016 02/20/2020 12:00:00 AM EST [facility] (Maddie Dueñas MD [facility]) Intermediate Eye Exam Established Patient Intermediate Eye Exam Established Patient 02/20/2020 12:00:00 AM EST [facility] (Pravin Dueñas MD [facility]) Results ID Date Data Source [id number] 01/13/2021 12:55:00 PM EDT [facility] Name Value Range Interpretation Code Description Data Dilma rce(s) Supporting Document(s) SARS-CoV-2 RNA Pnl Spec CRUZ+probe NEG [facility] This lab was ordered by [facility] and reported by [facility]. ID Date Data Source [id number] 12/04/2020 01:37:00 AM EDT [facility] Name Value Range Interpretation Code Description Data Dilma rce(s) Supporting Document(s) SARS-CoV-2 RNA Pnl Spec CRUZ+probe NEG [facility] This lab was ordered by [facility] A and reported by [facility]. ID Date Data Source [id number] 06/09/2020 03:57:00 PM EDT [facility] Name Value Range Interpretation Code Description Data Dilma rce(s) Supporting Document(s) SARS coronavirus 2 RNA panel NEG N [facility] This lab was ordered by [facility] T and reported by [facility]. Procedure Social History Code Duration Value Status Description Data Source(s ) Smoking 02/20/2020 08:26:39 AM EST Ex-smoker (finding) complet ed Ex-smoker (finding) [facility] (Maddie Dueñas MD [facility]) Vital Signs ID Date Data Source UNK Name Value Range Interpretation Code Description Data Source(s) Body height 70 [in_i] 70 [in_i] [facility] ([facility]) 5'10" Systolic blood pressure 130 mm[Hg] 130 mm[Hg] M EDENT ([facility]) Body weight 160.00 [lb_av] 160.00 [lb_av] MEDEN T ([facility]) Diastolic blood pressure 89 mm[Hg] 89 mm[Hg] [facility] ([facility]) Heart rate 73 /min 73 /min [facility] ([facility]) Body mass index (BMI) [Ratio] 23.0 kg/m2 23.0 k g/m2 MED[facility] ([facility]) Body weight 72.576 kg 72.576 kg [facility] ([facility]) Body temperature 97.2 [degF] 97.2 [degF] [facility] ([facility]) Body weight 167 [lb_av] 167 [lb_av] eCW1 ([facility]) Heart rate 83 /min 83 /min eCW1 ([facility]) Respiratory rate 18 /min 18 /min eCW1 ([facility]) Body temperature 98.1 [degF] 98.1 [degF] eCW1 ( [facility]) Systolic blood pressure 138 mm[Hg] 138 mm[Hg] e CW1 ([facility]) Body height 69 [in_i] 69 [in_i] eCW1 ([facility]) Body mass index (BMI) [Ratio] 24.66 kg/m2 24.66 kg/m2 eCW1 ([facility]) Diastolic blood pressure 76 mm[Hg] 76 mm[Hg] eCW1 ([facility]) Body weight 171 [lb_av] 171 [lb_av] eCW1 ([facility]) Body height 69 [in_i] 69 [in_i] eCW1 ([facility]) Body mass index (BMI) [Ratio] 25.25 kg/m2 25.25 kg/m2 eCW1 ([facility]) Heart rate 94 /min 94 /min eCW1 ([facility]) Respiratory rate 18 /min 18 /min eCW1 ([facility]) Body temperature 97.1 [degF] 97.1 [degF] eCW1 ( [facility]) Body weight 173 [lb_av] 173 [lb_av] eCW1 ([facility]) Body height 69 [in_i] 69 [in_i] eCW1 ([facility]) Body mass index (BMI) [Ratio] 25.54 kg/m2 25.54 kg/m2 eCW1 ([facility]) Heart rate 95 /min 95 /min eCW1 ([facility]) Respiratory rate 18 /min 18 /min eCW1 ([facility]) Body temperature 97.7 [degF] 97.7 [degF] eCW1 ( [facility]) Systolic blood pressure 144 mm[Hg] 144 mm[Hg] e CW1 ([facility]) Diastolic blood pressure 88 mm[Hg] 88 mm[Hg] eCW1 ([facility])
[2021-01-27 19:06] LABS: BASO % 0.1 % (0.0-1.0); HEMATOCRIT 34.5 % (42.0-52.0); HEMOGLOBIN 11.8 g/dl (13.5-17.5); LYMPH # 0.3 10^3/uL (1.5-5.0); LYMPH % 3.1 % (24.0-44.0); MEAN CORPUSCULAR HEMOGLOBIN 31.2 pg (27.0-33.0); MEAN CORPUSCULAR HGB CONC 34.2 g/dl (32.0-36.5); MEAN CORPUSCULAR VOLUME 91.3 fl (80.0-96.0); MONO # 0.6 10^3/uL (0.0-0.8); MONO % 7.3 % (2.0-8.0); NEUTROPHILS # 7.8 10^3/uL (1.5-8.5); PLATELET COUNT, AUTOMATED 310 10^3/uL (150-450); RED BLOOD COUNT 3.78 10^6/uL (4.30-6.10); WHITE BLOOD COUNT 8.7 10^3/uL (4.0-10.0)
[2021-01-27] MEDS ORDERED: ISOVUE-370 76% 100ML VIAL As Ordered ONE (19:18)
[2021-01-27 19:29] LABS: ALBUMIN 2.3 GM/DL (3.2-5.2); BILIRUBIN,DIRECT 1.2 MG/DL (0.0-0.2); BILIRUBIN,TOTAL 1.7 MG/DL (0.2-1.0)
[2021-01-27] MEDS ORDERED: MORPHINE 4 MG/ML 1ML VIAL/SYRINGE (J2270) IV ONE (19:30)
[2021-01-27] MEDS ORDERED: ASCO500T PO (20:36)
[2021-01-27] MEDS ORDERED: LOPR0.775 TOP (20:41)
[2021-01-27] MEDS ORDERED: CALCIUM (20:41)
[2021-01-27 20:42] LABS: RSV AMPLIFICATION NEGATIVE (NEGATIVE)
[2021-01-27] MEDS ORDERED: ESCI5SOL3 PO (20:43)
[2021-01-27] MEDS ORDERED: LORA1TAB4 PO (20:45)
[2021-01-27] MEDS ORDERED: OXYC-517 PO (20:51)
[2021-01-27] MEDS ORDERED: ONDA4TAB6 PO (20:51)
[2021-01-27] MEDS ORDERED: PANT40TA29 PO (20:55)
[2021-01-27] MEDS ORDERED: CICL1SHA2 (20:55)
[2021-01-27] MEDS ORDERED: BACTDSTA PO (20:55)
[2021-01-27] MEDS ORDERED: LEXA1TAB PO (20:56)
--- NOTE | 2021-01-27 22:02 | REPVR ---
PROCEDURE INFORMATION: Exam: CT Abdomen And Pelvis With Contrast Exam date and time: 01/27/2021 7:27 PM Age: 70 years old Clinical indication: Abdominal pain; Generalized; Additional info: Abd pain/constipation TECHNIQUE: Imaging protocol: Computed tomography of the abdomen and pelvis with contrast. Radiation optimization: All CT scans at this facility use at least one of these dose optimization techniques: automated exposure control; mA and/or kV adjustment per patient size (includes targeted exams where dose is matched to clinical indication); or iterative reconstruction. Contrast material: ISOVUE 370; Contrast volume: 100 ml; Contrast route: INTRAVENOUS (IV); COMPARISON: No relevant prior studies available. FINDINGS: Tubes, catheters and devices: Internal/external biliary drain in position extending from the skin surface to the 2nd portion of the duodenum. Lungs: Mild bilateral lower lobe fibro-atelectatic change, left greater than right. Pleural spaces: Minimal left pleural effusion. Liver: Small foci of ill-defined hyperenhancement in the lateral and posterior aspect of the hepatic dome measuring approximately 10 and 14 mm consistent with small AP shunts. There are several low-attenuation foci in the liver, greatest in the left lobe and measuring up to 3.6 cm with a Hounsfield measurement of 9 consistent with hepatic cysts. Gallbladder and bile ducts: Mild pneumobilia. Status post cholecystectomy. Pancreas: Slightly distended main pancreatic duct measuring 4-5 mm with apparent cut off at the level of the head. There is a large heterogeneous mass centered about the pancreatic head with cephalad and anterior distention which is confluent with the proximal duodenum and pylorus. This demonstrates an adjacent enlarged node measuring 13 x 13 x 17 mm. There is also posterior extension encasing the left renal vein which is prominently narrowed. There is slight encasement of a portion of the SMA. There is narrowing of the medial splenic vein and aortocaval extension which surrounds the right renal artery. Left renal vein collateralization is noted. The mass surrounds the aorta completely and extends caudally along the left retroperitoneum into the pelvis. There is some cephalad extension posterior to the main portal vein with narrowing of the proximal main portal vein and tapering and probable obstruction of the SMV. The mass measures approximately 16.4 x 9.8 x 13.0 cm. Spleen: Normal. No splenomegaly. Adrenal glands: Normal. No mass. Kidneys and ureters: Minimal nonobstructing left renal calculus. Mild left hydronephrosis which appears to be due to the left ureter disappearing into the left retroperitoneal mass. Stomach and bowel: Moderate stool throughout much of the colon. Appendix: There are no changes of appendicitis. A normal appendix is not seen. Intraperitoneal space: Unremarkable. No free air. Minimal free fluid is noted in the pelvis. Vasculature: There is mild calcification of the abdominal aorta with extension into the iliac arteries. Prominent venous varicosities involving the left spermatic cord and left scrotum which may be related to obstruction of the left gonadal vein complex by the left retroperitoneal mass. Lymph nodes: Unremarkable. No enlarged lymph nodes. Urinary bladder: Unremarkable as visualized. Reproductive: See "Vasculature" finding. Bones/joints: Unremarkable. No acute fracture. Soft tissues: Multiple surgical clips are noted in the right inguinal region. IMPRESSION: 1. Large pancreatic head mass with prominent extension into the retroperitoneum, left greater than right and cephalad extension toward the duodenal bulb and pylorus. Adjacent enlarged nodes are present. Prominent vascular invasion and compression is noted with narrowing of the proximal main portal vein and distal splenic vein and probable compression and occlusion of the distal SMV. There is prominent narrowing of the left renal vein which demonstrates collateralization. 2. Left hydronephrosis which appears to be due to left retroperitoneal tumor involvement. 3. Prominent venous varicosities along the left spermatic cord and left scrotum which may be due to tumor involvement of the left gonadal vein complex. 4. Minimal nonobstructing left renal calculus. 5. Internal/external biliary drain in satisfactory position with mild pneumobilia. 6. Status post cholecystectomy. 7. Moderate stool throughout much of the colon without focal obstructing lesion. 8. Minimal left pleural effusion with mild bilateral lower lobe fibro-atelectatic change. Electronically signed by: Edgar Olivarez On 01/27/2021 22:02:06 PM
[2021-01-28] MEDS ORDERED: MORPHINE 4 MG/ML 1ML VIAL/SYRINGE (J2270) IV ONE (00:05)
[2021-01-28] MEDS ORDERED: ONDANSETRON 4MG/2ML VIAL IV ONE (00:05)
[2021-01-28] MEDS ORDERED: D3 S20002 PO (00:39)
[2021-01-28] MEDS ORDERED: ATIV1TAB10 PO (00:39)
[2021-01-28] MEDS ORDERED: CALC600T60 PO (00:39)
[2021-01-28] MEDS ORDERED: ACET-897 PO (00:39)
[2021-01-28] MEDS ORDERED: HOME MED LIST COMPLETE! XX SCH (00:40)
[2021-01-28] MEDS ORDERED: MOM 30ML SUSPENSION UDC PO PRN (02:00)
[2021-01-28] MEDS ORDERED: LACTULOSE 20 GM/30 ML SYRUP UD PO ONE (02:00)
[2021-01-28] MEDS ORDERED: MAALOX 30 ML SUSP *UDC PO PRN (02:00)
[2021-01-28] MEDS ORDERED: ACETAMINOPHEN TAB 650MG DOSE (2X325MG) PO PRN (02:00)
[2021-01-28] MEDS ORDERED: LORazepam 0.5 MG TAB PO PRN (02:05)
[2021-01-28] MEDS ORDERED: oxyCODONE 5MG TAB PO PRN (02:05)
--- OUTSIDE RECORDS SUMMARY | 2021-01-28 02:09 | CCD ---
Author Author [facility] Organization 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 If you continue you may have access to information: Regarding HIV / AIDS; Provided by facilities licensed or operated by the [facility] Office of Mental Health; or Provided by the [facility] Office for People With Developmental Disabilities. If such information is present, then the following [facility] mandated warning applies: This information has [...] law may result in a fine or skilled nursing sentence or both. A general authorization for the release of medical or other information is NOT sufficient authorization for further disc losure. Allergies and Adverse Reactions Type Description Substance Reaction Status Data Source(s ) Allergy to substance No Known Allergies No known allergies (situation ) [place] (Maddie Dueñas MD [facility]) Family History Family Member Name Family Member Gender Family Member Status Date o f Status Description Data Source(s) Unknown Female Problem MEDENT ([facility]) Unknown Female Problem [facility] Unknown Female Problem [facility] ([facility]) Encounters Encounter Providers Location Date Indications Data Source(s ) [place] [address] [address] 01/18/2021 12:00:00 AM EDT eCW1 ([facility]) Outpatient Attender: Natalio Foreman MD Main Office 01/04/2021 11:00:00 AM EDT MEDENT ([facility]) [place] [address] [address] 09/15/2020 12:00:00 AM EDT eCW1 ([facility]) Office Visit, Est Pt., Level 2 FC [address] [place] [address] 06/25/2020 12:00:00 AM EDT eCW1 ([facility]) [place] [address] [address] 06/16/2020 12:00:00 AM EDT eCW1 ([facility]) [place] [address] [address] 02/25/2020 12:00:00 AM EST eCW1 ([facility]) <td ID="encounterTypeDescriptionID0">1 Y ear Follow-Up</td><td>Cordell Foreman DO</td><td>Maddie Gamboa MD [facility]</td><td>02/20/2020</td><td>7:18AM</td><td>8:22AM</td><td><content ID="encounterDiagnosisID0-0">Corneal Scar</content>, <content ID="encounterDiagnosisID0-1">Dry Eye Syndrome Both Eyes</content>, <content ID="encounterDiagnosisID0-2">Macular Puckering Left Eye</content>, <content ID="encounterDiagnosisID0-3">Vitreous Disorders Degeneration</content>, <content ID="encounterDiagnosisID0-4">Pseudophakia</content>, <content ID="encounterDiagnosisID0-5">Cataract Senile Nuclear</content></td>Outpatient Attender: CORDELL Ivy MD [facility] 02/20/2020 07:18:00 AM EST - 02/20/2020 08:22:00 AM EST Cataract Senile NuclearPseudophakiaVitre ous Disorders DegenerationMacular Puckering Left EyeDry Eye Syndrome Both EyesCorneal Scar STACEY (Maddie Dueñas MD [facility]) Cataract Senile Nuclear Pseudophakia Vitreous Disorders Degeneration Macular Puckering Left Eye Dry Eye Syndrome Both Eyes Corneal Scar [place] [address] [address] 12/09/2019 12:00:00 AM EDT eCW1 ([facility]) Immunizations Vaccine Date Status Description Data Source(s) COVID-19 VACCINE Moderna 06/18/2020 12:00:00 AM EDT completed [facility] Vaccine Series Complete: NOThis Data was Submitted to [facility] Via [employer]. COVID-19 VACCINE Moderna 05/14/2020 12:00:00 AM EST completed [facility] Vaccine Series Complete: YESThis Data wa s Submitted to [facility] [employer]. Medications Medication Brand Name Start Date Product Form Dose Route Admi nistrative Instructions Pharmacy Instructions Status Indications Reaction Description Data Source(s) Suprep Bowel Prep Kit Suprep Bowel Prep Kit 01/04/2021 12:00:00 AM EDT active MEDENT ([facility]) Pembrolizumab 50 MG UNK 09/15/2020 12:00:00 AM EDT active Pembrolizumab 50 MG eCW1 ([facility]) Pembrolizumab 50 MG UNK 09/15/2020 12:00:00 AM EDT active Pembrolizumab 50 MG eCW1 ([facility]) Cetirizine 10 mg Oral Tablet Cetirizine 10 mg Oral Tablet 12:00:00 AM EST 1 active Cetirizine [facility] [facility] (Maddie Dueñas MD [facility]) 4 ML nivolumab 10 MG/ML Injection Nivolumab 40 MG/4ML Intravenous Solution Nivolumab 40 MG/4ML Intravenous Solution 02/20/2020 12:00:00 AM EST active 4 ML nivolumab 10 MG/ML Injectio n [facility] (Maddie Dueñas MD [facility]) Betamethasone 0.5 MG/ML Topical Cream Be tamethasone Dipropionate 0.05% External Cream Betamethasone Dipropionate 0.05% External Cream 2019 12:00:00 AM EST active betamethasone 0.5 MG/ML Topical Cream [facility] (Maddie Dueñas MD [facility]) Ketoconazole 20 MG/ML Topical Cream Ketoconazole 2% Ex ternal Cream Ketoconazole 2% External Cream 02/20/2020 12:00:00 AM EST active ketoconazole 20 MG/ML Topical Cream [place]Y (Maddie Dueñas MD [facility]) Daily Multivitamin Oral Capsule Daily Multivitamin Oral Caps ule 02/20/2020 12:00:00 AM EST 1 active Daily Mu ltivitamin [facility]ACEY (Maddie Dueñas MD [facility]) ciclopirox 10 MG/ML Medicated Shampoo Ciclopirox 1% Ex ternal Shampoo Ciclopirox 1% External Shampoo 02/20/2020 12:00:00 AM EST active ciclopirox 10 MG/ML Medicated Shampoo [facility] (Maddie Dueñas MD [facility]) Cholecalciferol 2000 UNT Oral Capsule Ch olecalciferol 50 MCG (1999) Oral Capsule Cholecalciferol 50 MCG (1999) Oral Capsule 02/20/20 12:00:00 AM EST active cholecalciferol 0 .05 MG Oral Capsule [facility]ACE[place] (Maddie Dueñas MD [facility]) Insurance Providers Payer name Policy type / Coverage type Policy ID Covered democrat ID Covered democrat's relationship to salazar Policy Salazar Plan Information BCBS E[place]IRE [place] [id number] SP [id number] [facility] [id number] SP [id number] MEDICARE A [id number] Self [id number] EMPIRE PLAN [facility] U [id number] Self [id number] [facility] U [id number] Self [id number] Medicare Part B [facility] Other 0 [id number] Self 0 BCBS EMPIRE [place] DIV BCBS E[place]IRE [place] DIV [id number] SP [id number] ANSI-Medicare Part B [id number] ANSI-Commercial [id number] ANSI-Commercial [id number] ANSI-Medicare Part B [id number] ANSI-Medicare Part B [id number] ANSI-Commercial [id number] MEDICARE [id number] SP [id number] A BCBS EMPIRE BC [id number] S [id number] EMPIRE ([facility]) O [id number] S [id number] [facility] O [id number] S [id number] [facility] Health Maintenance Organization (HMO) [id number] Self [employer] Health Maintenance Organization (HMO) [id number] Self MEDICARE [id number] SP [id number] [employer] [id number] SP [id number] BCBS E[place]IRE [place] [id number] SP [id number] [employer] [id number] SP [id number] [facility] [employer] [facility] Other [id number] Self 0 Problems, Conditions, and Diagnoses Code Display Name Description Problem Type Effective Dates Data Source(s) C4A.9 [id number] Taisha cell carcinoma, unspecified Proble m 06/25/2020 12:00:00 AM EDT eCW1 ([facility]) C7B.1 [id number] [place] cell carcinoma Problem 06/25/2020 12:00:00 AM EDT eCW1 ([facility]) 366.16 Cataract Senile Nuclear Cataract Senile Nuclear Proble m 02/20/2020 12:00:00 AM EST [place] (Maddie Dueñas MD [facility]) V43.1 Pseudophakia Pseudophakia Problem 02/20/2020 12:00:00 A M EST [place] (Maddie Dueñas MD [facility]) Surgeries/Procedures Procedure Description Date Indications Data Source(s) OFFICE OUTPATIENT NEW 30 MINUTES 01/04/2021 12:00:00 A M EDT MEDENT ([facility]) Surgical / procedural history Gall Blad viet removal 1999, Biopsy of groin 10/24/2019, 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 Foreman 08/28/2016 02/20/2020 12:00:00 AM EST [place] (Maddie Dueñas MD [facility]) Intermediate Eye Exam Established Patient Intermediate Eye Exam Established Patient 02/20/2020 12:00:00 AM EST [place] (Pravin Dueñas MD [facility]) Results ID Date Data Source [id number] 01/13/2021 12:55:00 PM EDT [facility] Name Value Range Interpretation Code Description Data Dilma rce(s) Supporting Document(s) SARS-CoV-2 RNA Pnl Spec CRUZ+probe NEG [facility] This lab was ordered by [facility] B and reported by [facility] - [facility] Laboratory. ID Date Data Source [id number] 12/04/2020 01:37:00 AM EDT [facility] Name Value Range Interpretation Code Description Data Dilma rce(s) Supporting Document(s) SARS-CoV-2 RNA Pnl Spec CRUZ+probe NEG [facility] This lab was ordered by [facility] A and reported by [facility]. ID Date Data Source [id number] 06/09/2020 03:57:00 PM EDT [facility] Name Value Range Interpretation Code Description Data Dilma rce(s) Supporting Document(s) SARS coronavirus 2 RNA panel NEG N [facility] This lab was ordered by [facility] T and reported by [facility]. Procedure Social History Code Duration Value Status Description Data Source(s ) Smoking 02/20/2020 08:26:39 AM EST Ex-smoker (finding) complet ed Ex-smoker (finding) [place] (Maddie Dueñas MD [facility]) Vital Signs ID Date Data Source UNK Name Value Range Interpretation Code Description Data Source(s) Body height 70 [in_i] 70 [in_i] [facility] ([facility]) 5'10" Body weight 160.00 [lb_av] 160.00 [lb_av] MEDEN T ([facility]) Systolic blood pressure 130 mm[Hg] 130 mm[Hg] M EDENT ([facility]) Diastolic blood pressure 89 mm[Hg] 89 mm[Hg] MEDENT ([facility]) Heart rate 73 /min 73 /min [facility] ([facility]) Body mass index (BMI) [Ratio] 23.0 kg/m2 23.0 k g/m2 MEDENT ([facility]) Body weight 72.576 kg 72.576 kg [facility] ([facility]) Body temperature 97.2 [degF] 97.2 [degF] MEDENT ([facility]) Body weight 167 [lb_av] 167 [lb_av] eCW1 ([facility]) Body height 69 [in_i] 69 [in_i] eCW1 ([facility]) Body mass index (BMI) [Ratio] 24.66 kg/m2 24.66 kg/m2 eCW1 ([facility]) Body temperature 98.1 [degF] 98.1 [degF] eCW1 ( [facility]) Heart rate 83 /min 83 /min eCW1 ([facility]) Systolic blood pressure 138 mm[Hg] 138 mm[Hg] e CW1 ([facility]) Respiratory rate 18 /min 18 /min eCW1 ([facility]) Diastolic blood pressure 76 mm[Hg] 76 mm[Hg] eCW1 ([facility]) Body weight 171 [lb_av] 171 [lb_av] eCW1 ([facility]) Body height 69 [in_i] 69 [in_i] eCW1 ([facility]) Body mass index (BMI) [Ratio] 25.25 kg/m2 25.25 kg/m2 eCW1 ([facility]) Heart rate 94 /min 94 /min eCW1 ([facility]) Respiratory rate 18 /min 18 /min eCW1 ([facility]) Body temperature 97.1 [degF] 97.1 [degF] eCW1 ( [facility]) Body weight 173 [lb_av] 173 [lb_av] eCW1 ([facility]) Body height 69 [in_i] 69 [in_i] eCW1 ([facility]) Body mass index (BMI) [Ratio] 25.54 kg/m2 25.54 kg/m2 eCW1 ([facility]) Heart rate 95 /min 95 /min eCW1 ([facility]) Respiratory rate 18 /min 18 /min eCW1 ([facility]) Body temperature 97.7 [degF] 97.7 [degF] eCW1 ( [facility]) Systolic blood pressure 144 mm[Hg] 144 mm[Hg] e CW1 ([facility]) Diastolic blood pressure 88 mm[Hg] 88 mm[Hg] eCW1 ([facility])
[2021-01-28] MEDS ORDERED: MORPHINE 4 MG/ML 1ML VIAL/SYRINGE (J2270) IV PRN (02:25)
--- NOTE | 2021-01-28 02:26 | HPEPDOC ---
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 Patient receives his oncological care at [facility]. He was recently admitted a week ago for right upper quadrant abdominal pain and hyperbilirubinemia. He had a percutaneous biliary drain inserted which improved her symptoms. He has had reduced p.o. intake and because of his abdominal pain and constipation for the last [address] abdomen pelvis with IV contrast was performed, showing large pancreatic head mass with extension into the retroperitoneum, as well as vascular invasion and compression with narrowing of the proximal portal vein vein and distal splenic vein and probable compression of occlusion of the distal SMV. There is also left hydronephrosis which appears to be due to left retroperitoneal tumor involvement. ER staff contacted [facility] oncology change person that assured them that CT abdomen has not changed since the last study at [facility]. I spoke with Dr. Lujan prior to admission, suggested patient be admitted for symptomatic treatment as well as improvement of constipation. Patient will be admitted to hospitalist service. PAST MEDICAL HISTORY: ERECTILE DYSFUNCTION ULCERATIVE COLITIS--NOW IN REMISSION-- REGULAR COLONOSCOPIES WITH DR. GONZALEZ, (LAST 05/05 NL--REPEAT IN 7 YRS) DYSPLASTIC NEVI--SEES DERM IN SYR Q 6 MO LYME VACCINATION 1999 ? LYME DISEASE 2009 KIDNEY STONES MILD HYPERLIPIDEMIA-- 10 YR ASCVD RISK 10% 08/02-- STARTED STATIN TX 2016 TAISHA CELL CARCINOMA-- RT INGUINAL LYMPH NODE BX 10/05; TX WITH NIVOLUMAB X 2 THEN RADIATION TX X 25 SESSIONS; FOLLOWED BY UR;NEG PET 05/09; INFECTED UR FOR RT THIGH ABSCESS AT BIOPSY SITE (80 ML PUS WAS DRAINED); STARTED PEMBROLIZUMAB 07/07, stopped. Now on carboplatin. PAST SURGICAL HISTORY: Percutaneous biliary drain 02/06 at [facility] CHOLECYSTECTOMY 2000 COLONOSCOPIES 1999, 2008, 04/2016 SOCIAL HISTORY: denies etoh former smoker denies illicits lives with his FAMILY HISTORY: FATHER: 89 YRS, ALCOHOLISM MOTHER: , HTN, CORONARY ARTERY DISEASE SIBLINGS: 70 YRS, BROTHER OF BRAIN TUMOR SON(S): ALIVE 1 BROTHER(S) , 2 SISTER(S) . 2 SON(S) - HEALTHY. PT WITH HX KIDNEY STONES. ALLERGIES: Please see below. REVIEW OF SYSTEMS: 10 point ROS conducted, relevant findings are noted in HPI HOME MEDICATIONS: Please see below. PHYSICAL EXAMINATION: VITAL SIGNS: please see below General: NAD, comfortable HEENT: PERRLA, EOMI, sclerae clear Neck: supple, normal ROM, no JVD Respiratory: lungs CTAB, no wheeze, no rales, no crackles CVS: RRR, normal S1, S2, no murmurs Abdo: RUQ biliary drain, pain to palpation of LUQ, no distension Extremities: no edema, pulses 2+ MSK: no joint deformities, normal ROM Neuro: no focal neuro deficits, moving all 4 extremities, CN2-12 intact. Strength 5/5 in all 4 extremities. No nystagmus. Psych: calm, cooperative, AAO x 3 LABORATORY DATA: See below. IMAGING: CT abdo pelvis w IV contrast (01/27/21): 1. Large pancreatic head mass with prominent extension into the retroperitoneum, left greater than right and cephalad extension toward the duodenal bulb and pylorus. Adjacent enlarged nodes are present. Prominent vascular invasion and compression is noted with narrowing of the proximal main portal vein and distal splenic vein and probable compression and occlusion of the distal SMV. There is prominent narrowing of the left renal vein which demonstrates collateralization. 2. Left hydronephrosis which appears to be due to left retroperitoneal tumor involvement. 3. Prominent venous varicosities along the left spermatic cord and left scrotum which may be due to tumor involvement of the left gonadal vein complex. 4. Minimal nonobstructing left renal calculus. 5. Internal/external biliary drain in satisfactory position with mild pneumobilia. 6. Status post cholecystectomy. 7. Moderate stool throughout much of the colon without focal obstructing lesion. 8. Minimal left pleural effusion with mild bilateral lower lobe fibro-atelectatic change. MICROBIOLOGY: Please see below. 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 Found to have elevated lipase to 950. Admitted for treatment of pancreatitis as well as constipation. . PLAN: #Constipation: last BM 2 days ago. ER d/w oncology change person at [facility]. Ok to proceed with enema. Ordered soap suds enama, miralax, lactulose. #Vomiting: likely a consequence of recent chemotherapy treatment. CT abdo pelvis does not show evidence for bowel obstruction. #Pancreatitis: lipase 950. Start clear liquid diet. Pain control with IV morphine for breakthrough. C/w home dose oxycodone. Pantoprazole. #[place] Cell Carcinoma with mets to abdomen: completed several rounds of immunotherapy. Followed at [facility]. Now receiving carboplatin. Goal of therapy is palliative. S/p percutanous biliary drain due to biliary duct obstruction. Resume home oxycodone 5 mg qid prn. To f/u with oncology at [facility]. #L hydronephrosis: 2/2 obstructing mass invasion. Cr 0.09. CODE STATUS: Discussed with the patient and his . Patient wishes to be DNR and DNI. His is in agreement with his decision. He prefers to fill out the MOLST form during the day. Vital Signs Vital Signs Date Time Temp Pulse Resp B/P (MAP) Pulse Ox O2 Delivery O2 Flow Rate FiO2 01/28/21 00:39 91 18 123/82 95 Room Air 01/27/21 16:58 98.5 Laboratory Data Labs 24H Laboratory Tests 2 01/27/21 18:08: Immature Granulocyte % (Auto) 0.5, Neutrophils (%) (Auto) 89.0H, Lymphocytes (%) (Auto) 3.1L, Monocytes (%) (Auto) 7.3, Eosinophils (%) (Auto) 0.0, Basophils (%) (Auto) 0.1, Neutrophils # (Auto) 7.8, Lymphocytes # (Auto) 0.3L, Monocytes # (Auto) 0.6, Eosinophils # (Auto) 0.0, Basophils # (Auto) 0.0, Nucleated Red Blood Cells % (auto) 0.0, Lactic Acid Level 2.8*H, Total Bilirubin 1.7H, Direct Bilirubin 1.2H, Aspartate Amino Transf (AST/SGOT) 54H, Alanine Aminotransferase (ALT/SGPT) 137H, Alkaline Phosphatase 307H, Total Protein 6.0L, Albumin 2.3L, Albumin/Globulin Ratio 0.6, Lipase 957H 01/27/21 18:28: Urine Color JOSE, Urine Appearance HAZY, Urine pH 5.0, Urine Specific [place] 1.024, Urine Protein 1+H, Urine Glucose (UA) NEGATIVE, Urine Ketones TRACEH, Urine Blood 2+H, Urine Nitrite NEGATIVE, Urine Bilirubin NEGATIVE, Urine Urobilinogen 0.2, Urine Leukocyte Esterase NEGATIVE, Urine WBC (Auto) 2, Urine RBC (Auto) 25H, Urine Hyaline Casts (Auto) 0, Urine Bacteria (Auto) NEGATIVE, Urine Squamous Epithelial Cells 0, Urine Mucus (Auto) SMALL, Urine Sperm (Auto) 01/27/21 19:10: POC Glucose (Misc Panel) 132H, POC Sodium (Misc Panel) 126L, POC Potassium (Misc Panel) 4.4, POC Chloride (Misc Panel) 93L, POC Total CO2 (Misc Panel) 24.0, POC Blood Urea Nitrogen (Misc Panel 19, POC Ionized Calcium (Misc Panel) 4.5, POC Creatinine (Misc Panel) 0.9, POC Hematocrit (Misc Panel) 33.0L 01/27/21 19:38: Coronavirus (COVID-19)(PCR) NEGATIVE, Influenza Type A (RT-PCR) NEGATIVE, Influenza Type B (RT-PCR) NEGATIVE, Respiratory Syncytial Virus (PCR) NEGATIVE CBC/BMP Laboratory Tests 01/27/21 18:08 Microbiology Microbiology 01/27/21 Blood Culture, Received Pending 01/27/21 Blood Culture, Received Pending Home Medications Scheduled Ascorbic Acid (Ascorbic Acid) 500 Mg Tablet, 500 MG PO DAILY Aspirin (Aspirin EC) 81 Mg Tab, 81 MG PO DAILY Atorvastatin Calcium (Atorvastatin Calcium) 20 Mg Tablet, 20 MG PO DAILY Calcium Carbonate (Calcium) 600 Mg Tablet, 600 MG PO DAILY Cetirizine HCl (Cetirizine HCl) 10 Mg Tab.chew, 10 MG PO DAILY Cholecalciferol (Vitamin D3) (Vitamin D3) 50 Mcg Capsule, 50 MCG PO DAILY Ciclopirox Olamine (Loprox) 90 Gm Cream..g., 1 APLCT TOP BID Escitalopram Oxalate (Lexapro) 10 Mg Tablet, 10 MG PO DAILY Pantoprazole Sodium (Pantoprazole Sodium) 40 Mg Tablet.dr, 40 MG PO DAILY Prednisone (Prednisone) 10 Mg Tablet, 50 MG PO DAILY Sulfamethoxazole/Trimethoprim (Sulfamethoxazole-Tmp Ds Tablet) 1 Each Tablet, 1 T PO DAILY 800-160. ONLY ON SUNDAY,SUNDAY,SUNDAY Scheduled PRN Acetaminophen (Tylenol Extra Strength) 500 Mg Tablet, 500 MG PO Q8H PRN for PAIN LEVEL 1-4 Lorazepam (Ativan) 0.5 Mg Tablet, 0.5 MG PO Q6H PRN for ANXIETY/AGITATION Ondansetron (Ondansetron Odt) 4 Mg Tab.rapdis, 4 MG PO QID PRN for nausea/vomiting Oxycodone HCl (Oxycodone HCl) 5 Mg Tablet, 5 MG PO QIDP PRN for pain Allergies Coded Allergies: No Known Allergies (Unverified , 09/09/19) A-FIB/CHADSVASC A-FIB History Current/History of A-Fib/PAF?: No LEOPOLDO ROBERTSON MD Jan 28, 2021 02:26
[2021-01-28 03:16] LABS: HEMATOCRIT 33.4 % (42.0-52.0); HEMOGLOBIN 11.2 g/dl (13.5-17.5); LYMPH # 0.4 10^3/uL (1.5-5.0); LYMPH % 4.5 % (24.0-44.0); MEAN CORPUSCULAR HEMOGLOBIN 31.1 pg (27.0-33.0); MEAN CORPUSCULAR HGB CONC 33.5 g/dl (32.0-36.5); MEAN CORPUSCULAR VOLUME 92.8 fl (80.0-96.0); MONO # 0.7 10^3/uL (0.0-0.8); MONO % 7.9 % (2.0-8.0); NEUTROPHILS % 87.2 % (36.0-66.0); PLATELET COUNT, AUTOMATED 272 10^3/uL (150-450); WHITE BLOOD COUNT 9.1 10^3/uL (4.0-10.0)
[2021-01-28 03:38] LABS: ALBUMIN 2.1 GM/DL (3.2-5.2); ALT/SGPT 120 U/L (12-78); BILIRUBIN,TOTAL 1.9 MG/DL (0.2-1.0); BLOOD UREA NITROGEN 21 MG/DL (7-18); CALCIUM LEVEL 8.4 MG/DL (8.8-10.2); CARBON DIOXIDE LEVEL 27 MEQ/L (21-32); CHLORIDE LEVEL 98 MEQ/L (98-107); CREATININE FOR GFR 1.13 MG/DL (0.70-1.30); GLOMERULAR FILTRATION RATE > 60.0 (>49); GLUCOSE, FASTING 112 MG/DL (70-100); MAGNESIUM LEVEL 2.6 MG/DL (1.8-2.4); POTASSIUM SERUM 5.7 MEQ/L (3.5-5.1); SODIUM LEVEL 132 MEQ/L (136-145); TOTAL PROTEIN 6.1 GM/DL (6.4-8.2)
[2021-01-28] MEDS: NS 1,000 ML IV SCH ×2 (04:37→10:37)
[2021-01-28] MEDS ORDERED: SOD POLYSTYRENE SULFONATE SUSP 15 GM/60 ML UD PO ONE (05:25)
[2021-01-28] MEDS: HEPARIN SOD (PORCINE) 5000UNITS/ML 1ML VIAL/SYRINGE SC SCH ×2 (06:15→14:21)
[2021-01-28 08:52] LABS: BLOOD UREA NITROGEN 23 MG/DL (7-18); CALCIUM LEVEL 8.3 MG/DL (8.8-10.2); CARBON DIOXIDE LEVEL 25 MEQ/L (21-32); CHLORIDE LEVEL 99 MEQ/L (98-107); CREATININE FOR GFR 1.16 MG/DL (0.70-1.30); GLOMERULAR FILTRATION RATE > 60.0 (>49); GLUCOSE, FASTING 136 MG/DL (70-100); POTASSIUM SERUM 4.7 MEQ/L (3.5-5.1); SODIUM LEVEL 133 MEQ/L (136-145)
[2021-01-28] MEDS ORDERED: ESCITALOPRAM OXALATE 10 MG TAB (LEXAPRO) PO SCH (09:00)
[2021-01-28] MEDS ORDERED: PANTOPRAZOLE 40MG VIAL (C9113 PER 1) IV SCH (09:00)
[2021-01-28] MEDS ORDERED: BACTRIM 160MG/800MG DS TAB PO SCH (09:00)
[2021-01-28] MEDS ORDERED: predniSONE 10 MG TAB PO SCH (09:00)
[2021-01-28] MEDS ORDERED: ATORVASTATIN 20 MG TAB PO SCH (09:00)
[2021-01-28] MEDS ORDERED: MIRALAX *UNIT DOSE* 17GM PACKET PO SCH (09:00)
[2021-01-28] MEDS ORDERED: ASCORBIC ACID 500 MG TAB PO SCH (09:00)
[2021-01-28] MEDS ORDERED: PANTOPRAZOLE 40MG TAB (PROTONIX) PO SCH (09:00)
[2021-01-28] MEDS ORDERED: CETIRIZINE (ZyrTEC) 10 MG TAB PO SCH (09:00)
[2021-01-28] MEDS ORDERED: ASPIRIN 81MG ENTERIC TABLET PO SCH (09:00)
[2021-01-28] MEDS ORDERED: MIRA1POW3 PO (14:25)
[2021-01-28 14:40] VITALS: BP 145/83
--- NOTE | 2021-01-28 19:15 | DS.PDOC ---
Discharge Summary General Date of Admission Jan 27, 2021 at 16:57 Date of Discharge 01/28/2021 Attending Physician: BRETT ADDISON DO Discharge Summary PROCEDURES PERFORMED DURING STAY: None ADMITTING DIAGNOSES: 1. Constipation. 2. Vomiting 3. Pancreatitis 4. 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 Left hydronephrosis DISCHARGE DIAGNOSES: 1. Constipation, improved. 2. Vomiting, improved 3. Pancreatitis 4. 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 Left hydronephrosis COMPLICATIONS/CHIEF COMPLAINT: Constipation,Hyponatremia,Pancreatitis. HISTORY OF PRESENT ILLNESS: Patient is a 70-year-old male with past medical history of ulcerative colitis, kidney stone, [place] cell carcinoma with intra- abdominal metastasis including pancreatic head, presented the emergency department 2-day history of constipation as well as vomiting and left upper quadrant pain. Patient receives oncologic care at [facility]. He was recently admitted a week ago for right upper quadrant pain and hyperbilirubinemia. He had a percutaneous biliary drain inserted which improved his symptoms. Patient has reduced p.o. intake because of his abdominal pain and constipation for last [address] of the abdomen and pelvis with IV contrast was performed showing large pancreatic head mass with extension into the retroperitoneum, as well as vascular invasion and compression with narrowing of the proximal portal vein and distal splenic vein and probable compression of the distal SMV. There is also left hydronephrosis which appears to be due to left retroperitoneal tumor involvement. ER staff contacted [facility] oncology on-call that assured them that the CT abdomen is not changed since last study at [facility]. Dr. Manzanares was contacted prior to admission status please be admitted for symptomatic treatment as well as improvement of constipation. Patient will be mated to the hospital service. HOSPITAL COURSE: Patient had an enema which helped improve his symptoms. Patient had 2 bowel movements in the morning. When I saw the patient I gave him the option of staying or continuing treatment at home. Patient states that he wanted to stay however, patient did have a bowel movement later on the afternoon and was feeling much better and was asking to go home. Patient was deemed ready for discharge and was discharged home on 01/28/2021 DISCHARGE MEDICATIONS: Please see below. ALLERGIES: Please see below. PHYSICAL EXAMINATION ON DISCHARGE: VITAL SIGNS: Please see below. General: Alert and oriented male patient who was sitting on the stretcher when I walked in. Patient not appear to be in any acute distress. HEENT: Normocephalic, atraumatic, moist mucous membranes. Neck: No lymphadenopathy or thyromegaly Cardiac: Regular rate and rhythm, no murmurs, normal S1, normal S2 Pulm: Clear to auscultation bilaterally. No wheezes, rhonchi, rales Abd: Nondistended, minimal tenderness to palpation, no rebound tenderness, normal bowel sounds Ext: No edema bilateral lower extremities LABORATORY DATA: Please see below. IMAGING: CT of the abdomen and pelvis performed with IV contrast on 01/27/2021 was reported to show: 1. Large pancreatic head mass with prominent extension into the retroperitoneum, left greater than right and cephalad extension toward the duodenal bulb and pylorus. Adjacent enlarged nodes are present. Prominent vascular invasion and compression is noted with narrowing of the proximal main portal vein and distal splenic vein and probable compression and occlusion of the distal SMV. There is prominent narrowing of the left renal vein which demonstrates collateralization. 2. Left hydronephrosis which appears to be due to left retroperitoneal tumor involvement. 3. Prominent venous varicosities along the left spermatic cord and left scrotum which may be due to tumor involvement of the left gonadal vein complex. 4. Minimal nonobstructing left renal calculus. 5. Internal/external biliary drain in satisfactory position with mild pneumobilia. 6. Status post cholecystectomy. 7. Moderate stool throughout much of the colon without focal obstructing lesion. 8. Minimal left pleural effusion with mild bilateral lower lobe fibro-atelectatic change. PROGNOSIS: Fair ACTIVITY: As tolerated. DIET: High-fiber diet DISCHARGE PLAN: Discharge home DISPOSITION: home, self-care DISCHARGE INSTRUCTIONS: 1. Follow-up with primary care provider in 3 to 5 days discharge. 2. Follow-up with oncology as scheduled 3. Continue take Colace and/or MiraLAX until you are having soft bowel movements on a daily basis 4. Return to the emergency department symptoms worsen ITEMS TO FOLLOWUP ON ON OUTPATIENT: 1. None. DISCHARGE CONDITION: Stable. TIME SPENT ON DISCHARGE: 22 minutes. Vital Signs/I&Os Vital Signs Date Time Temp Pulse Resp B/P (MAP) Pulse Ox O2 Delivery O2 Flow Rate FiO2 01/28/21 14:40 98.0 92 35 145/83 (103) 96 Room Air I&O- Last 24 Hours up to 6 AM 01/28/21 06:00 Intake Total 1000 ml Output Total 100 ml Balance 900 ml Laboratory Data Labs 24H Laboratory Tests 2 01/27/21 19:10: POC Glucose (Misc Panel) 132H, POC Sodium (Misc Panel) 126L, POC Potassium (Misc Panel) 4.4, POC Chloride (Misc Panel) 93L, POC Total CO2 (Misc Panel) 24.0, POC Blood Urea Nitrogen (Misc Panel 19, POC Ionized Calcium (Misc Panel) 4.5, POC Creatinine (Misc Panel) 0.9, POC Hematocrit (Misc Panel) 33.0L 01/27/21 19:38: Coronavirus (COVID-19)(PCR) NEGATIVE, Influenza Type A (RT-PCR) NEGATIVE, Influenza Type B (RT-PCR) NEGATIVE, Respiratory Syncytial Virus (PCR) NEGATIVE 01/28/21 03:06: Immature Granulocyte % (Auto) 0.4, Neutrophils (%) (Auto) 87.2H, Lymphocytes (%) (Auto) 4.5L, Monocytes (%) (Auto) 7.9, Eosinophils (%) (Auto) 0.0, Basophils (%) (Auto) 0.0, Neutrophils # (Auto) 8.0, Lymphocytes # (Auto) 0.4L, Monocytes # (Auto) 0.7, Eosinophils # (Auto) 0.0, Basophils # (Auto) 0.0, Nucleated Red Blood Cells % (auto) 0.0, Anion Gap 7L, Glomerular Filtration Rate > 60.0, Lactic Acid Level 2.1*H, Calcium Level 8.4L, Magnesium Level 2.6H, Total Bilirubin 1.9H, Aspartate Amino Transf (AST/SGOT) 52H, Alanine Aminotransferase (ALT/SGPT) 120H, Alkaline Phosphatase 280H, Total Protein 6.1L, Albumin 2.1L, Albumin/Globulin Ratio 0.5 01/28/21 07:41: Anion Gap 9, Glomerular Filtration Rate > 60.0, Calcium Level 8.3L, Lactic Acid Followup at 4 Hours 2.6*H CBC/BMP Laboratory Tests 01/28/21 03:06 01/28/21 07:41 Microbiology Microbiology 01/27/21 Blood Culture, Received Pending 01/27/21 Blood Culture - Preliminary, Resulted No growth after 24 hours . All specim... Discharge Medications Scheduled Ascorbic Acid (Ascorbic Acid) 500 Mg Tablet, 500 MG PO DAILY, (Reported) Aspirin (Aspirin EC) 81 Mg Tab, 81 MG PO DAILY, (Reported) Atorvastatin Calcium (Atorvastatin Calcium) 20 Mg Tablet, 20 MG PO DAILY, (Reported) Calcium Carbonate (Calcium) 600 Mg Tablet, 600 MG PO DAILY, (Reported) Cetirizine HCl (Cetirizine HCl) 10 Mg Tab.chew, 10 MG PO DAILY, (Reported) Cholecalciferol (Vitamin D3) (Vitamin D3) 50 Mcg Capsule, 50 MCG PO DAILY, (Reported) Ciclopirox Olamine (Loprox) 90 Gm Cream..g., 1 APLCT TOP BID, (Reported) Escitalopram Oxalate (Lexapro) 10 Mg Tablet, 10 MG PO DAILY, (Reported) Pantoprazole Sodium (Pantoprazole Sodium) 40 Mg Tablet.dr, 40 MG PO DAILY, (R eported) Polyethylene Glycol 3350 (Miralax) 17 Gm Powd.pack, 1 PKT PO DAILY Prednisone (Prednisone) 10 Mg Tablet, 50 MG PO DAILY, (Reported) Sulfamethoxazole/Trimethoprim (Sulfamethoxazole-Tmp Ds Tablet) 1 Each Tablet, 1 T PO DAILY, (Reported) 800-160. ONLY ON SUNDAY,SUNDAY,SUNDAY Scheduled PRN Acetaminophen (Tylenol Extra Strength) 500 Mg Tablet, 500 MG PO Q8H PRN for PAIN LEVEL 1-4, (Reported) Lorazepam (Ativan) 0.5 Mg Tablet, 0.5 MG PO Q6H PRN for ANXIETY/AGITATION, (Reported) Ondansetron (Ondansetron Odt) 4 Mg Tab.rapdis, 4 MG PO QID PRN for nausea/vomiting, (Reported) Oxycodone HCl (Oxycodone HCl) 5 Mg Tablet, 5 MG PO QIDP PRN for pain, (Reported) Allergies Coded Allergies: No Known Allergies (Unverified , 09/09/19) BRETT ADDISON DO Jan 28, 2021 19:14
== END 2021-01-28 14:00 | disposition home or self-care (01) ==
LOC: M ED 16:56 → M ED INP 16:57 → ENRESERV 01-28 15:00 → UNDODISOB 01-29 11:41
PROVIDERS: ADMIT Family Medicine; ATTEND Family Medicine
DX: K59.00 Constipation, unspecified (principal); R11.10 Vomiting, unspecified; K85.90 Acute pancreatitis without necrosis or infection, unspecified; C4A.9 Merkel cell carcinoma, unspecified; C79.89 Secondary malignant neoplasm of other specified sites; C78.89 Secondary malignant neoplasm of other digestive organs; E87.1 Hypo-osmolality and hyponatremia; N13.30 Unspecified hydronephrosis; E78.5 Hyperlipidemia, unspecified; N52.9 Male erectile dysfunction, unspecified; Z87.442 Personal history of urinary calculi; Z79.899 Other long term (current) drug therapy; Z79.82 Long term (current) use of aspirin; Z79.52 Long term (current) use of systemic steroids; Z79.2 Long term (current) use of antibiotics
CPT/HCPCS: 36415; 74177; 80047; 80053; 80076; 81001; 83605; 83690; 83735; 85025; 87040; 87631; 96361; 96372; 96374; 96375; 96376; 99284; C9113; G0378; J1644; J2270; J2405; J7512; Q9967